=== PATIENT | female | born 1995 | race Caucasian/White ===

== ENCOUNTER 2018-06-17 16:41 | Outpatient (CLI) | payer MEDICAID, SELFPAY ==
--- NOTE | 2018-06-17 16:46 | DI.RAD_ITS ---
SYMPTOM/DIAGNOSIS: COUGH, R05, LOW BACK PAIN, M54.5 PA AND LATERAL CHEST: The heart is normal in size. The lungs are clear. The mediastinal structures and pleura appear intact. CONCLUSION: Normal chest. LUMBO-SACRAL SPINE: The bones of the spine appear intact. The intervertebral disc spaces are well maintained. No abnormality of vertebral alignment is seen. There is no evidence of spondylolysis or spondylolisthesis. CONCLUSION: Normal lumbo-sacral spine.
--- NOTE | 2018-06-17 16:58 | DI.VRAD_ITS ---
EXAM: XR Chest, 2 Views EXAM DATE/TIME: 06/17/2018 4:05 PM CLINICAL HISTORY: 23 years old, female; Signs and symptoms; Other: Cough TECHNIQUE: Imaging protocol: XR of the chest, 2 views. COMPARISON: No relevant prior studies available. FINDINGS: Lungs: Unremarkable. No consolidation. Pleural space: Unremarkable. No pleural effusion. No pneumothorax. Heart/Mediastinum: Unremarkable. No cardiomegaly. Bones/joints: Unremarkable. IMPRESSION: No acute findings. Dictated and Authenticated by: Cristi Vasquez MD. Ordering:DANYEL Lindsey MD
--- NOTE | 2018-06-17 16:58 | DI.VRAD_ITS ---
EXAM: XR Lumbar Spine, 4 or 5 Views EXAM DATE/TIME: 06/17/2018 4:05 PM CLINICAL HISTORY: 23 years old, female; Signs and symptoms; Other: Low back pain TECHNIQUE: Imaging protocol: XR of the lumbar spine, 4 or 5 views. COMPARISON: No relevant prior studies available. FINDINGS: Vertebrae: Normal. No acute fracture. Normal alignment. Soft tissues: Normal. IMPRESSION: Unremarkable radiograph. Dictated and Authenticated by: Cristi Vasquez MD. Ordering:DANYEL Lindsey MD
[2018-06-17 17:31] LABS: D-Dimer 1167 ng/mlFEU (<500)
== END 2018-06-17 17:01 ==
PROVIDERS: PCP Nurse Practitioner; Visit Provider Nurse Practitioner
DX: R05 Cough (principal); M54.5 Low back pain
CPT/HCPCS: 36415; 71046; 72110; 85379

== ENCOUNTER 2018-06-18 16:24 | Outpatient (CLI) | payer MEDICAID, SELFPAY ==
--- NOTE | 2018-06-18 14:29 | DI.CT_ITS ---
SYMPTOMS/DIAGNOSIS: COUGH, R05, ELEVATED D-DIMER, R79.89 CT ANGIOGRAPHY, CHEST: CT angiography was performed with intravenous infusion of 100 cc of Omnipaque 350. Images obtained through the upper abdomen show unremarkable appearance of visualized portions of liver, spleen and pancreas. Note is made of areas of apparent bilateral consolidation, predominantly in the lower lobes, consistent with infectious process. No pleural effusions seen. No pneumothorax seen. No evidence of thoracic aortic dissection or aneurysm. The pulmonary arteries are not ideally opacified, but there is no direct evidence of pulmonary embolic disease. CONCLUSION: Findings consistent with mild multifocal pneumonia. No evidence of pulmonary embolic disease.
[2018-06-18] MEDS: Omnipaque 350 MG/ML 100 ML BTL IJ (14:40)
== END 2018-06-18 16:44 ==
PROVIDERS: PCP Nurse Practitioner; Visit Provider Nurse Practitioner
DX: R05 Cough (principal); R79.89 Other specified abnormal findings of blood chemistry; J18.9 Pneumonia, unspecified organism
CPT/HCPCS: 71275; J3490

== ENCOUNTER 2019-01-28 18:58 | Outpatient (REF) | payer MEDICAID, SELFPAY ==
[2019-01-31 12:29] LABS: GC Result Negative (Negative)
[2019-01-31 15:28] LABS: Chlamydia Result Positive (Negative)
== END 2019-01-28 19:18 ==
LOC: NCHCN 18:58
PROVIDERS: PCP Nurse Practitioner; Visit Provider Nurse Practitioner Family
DX: Z11.3 Encounter for screening for infections with a predominantly sexual mode of transmission (principal); N89.8 Other specified noninflammatory disorders of vagina
CPT/HCPCS: 87491; 87591; 87480; 87510; 87660

== ENCOUNTER 2019-12-06 20:00 | Emergency (ER) | payer MEDICAID, SELFPAY ==
[2019-12-06 20:07] VITALS: BP 164/84; PULSE 118; RESP 16; TEMP 36.4; O2SAT 98
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
[2019-12-06 20:43] LABS: Abs Immature Grans 0.01 10^3/uL (0.0-0.06); Absolute Basophil Count 0.06 10^3/uL (0.0-0.2); Absolute Eosinophil Count 0.35 10^3/uL (0.0-0.7); Absolute Lymphocyte Count 2.77 10^3/uL (1.2-3.4); Absolute Monocyte Count 0.78 10^3/uL (0.1-0.8); Absolute Neutrophil Count 6.25 10^3/uL (1.2-6.7); Basophils % 0.6; Eosinophils % 3.4; HCT 43.3 % (36.0-46.0); Immature Grans % 0.1; Lymphocytes % 27.1; MCH 26.9 pg (27.0-33.0); MCHC 32.3 % (32.0-36.0); MCV 83.1 fL (80-95); MPV 10.8 fL (8.0-11.0); Monocytes % 7.6; Neutrophils % 61.2; Nucleated RBC 0 %; Platelet Count 342 10^3/uL (130-400); RBC 5.21 10^6/uL (3.93-5.22); RDW 16.3 % (11.7-14.6); RDW-SD 49.4 fL; WBC 10.22 10^3/uL (4.4-10.8)
[2019-12-06 20:50] VITALS: PULSE 99; RESP 16; O2SAT 98
--- NOTE | 2019-12-06 20:50 | NUR.NOTE ---
Nursing Note: Pelvic exam and specimens done by Dr Ball and chaperoned by this RN. Minimal pain and discomfort for patient. Specimens obtained and sent to lab.
[2019-12-06 20:56] LABS: Bilirubin Negative (Negative); Blood Negative (Negative); Clarity Clear (Clear); Glucose Negative (Negative); Ketones Negative (Negative); Leukocyte Esterase Small (Negative); Nitrite Negative (Negative); Specific Gravity >= 1.030 (1.005-1.025); Urobilinogen 0.2 EU/dL (Up TO 0.2); pH 5.5 (5-8)
[2019-12-06 21:07] LABS: ALT 22 U/L (14-59); AST 12 U/L (15-37); Albumin 3.9 g/dL (3.4-5.0); Alkaline Phosphatase 123 U/L (46-116); Anion Gap 9.6 mmol/L (3-11); BUN 9 mg/dL (7-18); Bilirubin, Total 0.2 mg/dL (0.2-1.0); CO2 26.4 mmol/L (21.0-32.0); CREATININE 0.82 mg/dL (0.55-1.02); Calcium 9.2 mg/dL (8.5-10.1); Chloride 106 mmol/L (98-107); Glucose 110 mg/dL (74-106); Potassium 3.4 mmol/L (3.5-5.1); Sodium 142 mmol/L (136-145); Total Protein 8.1 g/dL (6.4-8.2)
[2019-12-06 21:09] LABS: Bacteria Few HPF (Negative); C & S Indicated? No/Sq. Contamination; Casts Negative LPF (Negative); Crystals Negative HPF (Negative); Epithelial Cells Many HPF (Negative); Mucus Negative (Negative); Other Cells Moderate Renal (Negative)
[2019-12-06 21:12] LABS: HCG Quant, Pregnancy < 1 mIU/mL (1-3)
[2019-12-06 21:33] VITALS: BP 133/88; PULSE 98; RESP 16; O2SAT 98
[2019-12-06] MEDS: Ibuprofen 600 MG TAB PO (21:41)
[2019-12-06 22:34] VITALS: BP 136/87; PULSE 93; RESP 16; TEMP 37.2; O2SAT 98
[2019-12-08 15:10] LABS: GC Result Negative (Negative)
[2019-12-08 15:25] LABS: Chlamydia Result Positive (Negative)
== END 2019-12-06 22:35 | disposition home or self-care (01) ==
PROVIDERS: Emergency Provider Emergency Medicine; PCP Nurse Practitioner
DX: N76.0 Acute vaginitis (principal); B96.89 Other specified bacterial agents as the cause of diseases classified elsewhere; R10.814 Left lower quadrant abdominal tenderness; N93.9 Abnormal uterine and vaginal bleeding, unspecified
CPT/HCPCS: 36415; 80053; 81025; 87491; 87591; 99284; 81003; 81015; 84702; 85025; 87480; 87510; 87660

== ENCOUNTER 2019-12-08 15:56 | Emergency (ER) | payer MEDICAID, SELFPAY ==
--- NOTE | 2019-12-08 15:45 | DI.US_ITS ---
EXAM: US PELVIS TRANSVAGINAL CLINICAL HISTORY: left adnexal pain. TECHNIQUE: Transabdominal and transvaginal pelvic ultrasound was performed using standard protocol. COMPARISON: No exams were available for comparison FINDINGS: KIDNEYS: Kidneys are symmetric in size. No evidence of renal calculi. No evidence of hydronephrosis. No renal mass or cyst identified. UTERUS: Position: Retroverted Size: 9.6 long by 3.7 AP by 4.8 transverse cm Endometrium: 0.2 cm. Normal for patient's menstrual status. Myometrium: There does appear to be a small isoechoic mass along the posterior aspect of the uterus w hich may represent a small fibroid. Cervix: Unremarkable. OVARIES: Right: 3.3 x 1.9 x 1.8 cm Cyst or mass: Small follicular cysts. Left: 3.7 x 1.7 x 2.0 cm Cyst or mass: There is a 1.9 x 1.5 x 1.8 cm hyperechoic shadowing focus on the left ovary. Sonograph ically, this may represent a dermoid. DOPPLER: Color: Symmetric and uniform flow to both ovaries. No hyperemia. Duplex: Normal ovarian arterial waveforms visualized. CUL-DE-SAC: Free fluid: Small amount of free fluid in the cul-de-sac. Other: None. IMPRESSION: 1. Normal sonographic appearance of the kidneys. 2. Possible small isoechoic uterine fibroid. Normal endometrial stripe. 3. 1.9 cm hyperechoic shadowing focus on the left ovary which may represent a dermoid. 4. No evidence of ovarian torsion. DATA REPOSITORY:
[2019-12-08 16:03] VITALS: BP 145/90; PULSE 89; RESP 16; TEMP 36.6; O2SAT 97
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
[2019-12-08] MEDS: DOXYCYCLINE 100 MG in Normal Saline 100 ML IVPB (16:49)
--- NOTE | 2019-12-08 17:05 | DI.VRAD_ITS ---
Addendum created by Cam Moses MD on 12/08/2019 5:53:24 PM EDT: The electrical controls technician had mention the possibility of a tubo-ovarian abscess on this patient but I did not see any evidence of that. The cul-de-sac was relatively clear except for a small amount of free fluid . Impression: The findings in this study do not support the presence of a tubo-ovarian abscess Initial report created on 12/08/2019 5:05:10 PM EDT: PROCEDURE INFORMATION: Exam: US Pelvis Complete, Transabdominal and US Pelvis, Transvaginal Exam date and time: 12/08/2019 4:02 PM Age: 24 years old Clinical indication: Pelvic pain TECHNIQUE: Imaging protocol: Real-time transabdominal and transvaginal pelvic ultrasound (complete) with image documentation. Transvaginal imaging was used for better evaluation of the endometrium and adnexa. COMPARISON: SC OB US 2-3 TRIMESTER TRANSABD*P 05/18/2015 4:17 PM FINDINGS: Uterus/cervix: The uterus measures 9.6 x 3.7 x 4.8 cm with an endometrial stripe thickness of 2.2 mm. Right adnexa: The right ovary is visualized and measures 3.3 x 1.9 x 1.8 cm. The right ovary shows normal Doppler flow. Left adnexa: The left ovary measures 3.7 x 1.7 x 2.0 cm and also shows normal Doppler flow. Normal follicular cysts are in the left ovary. Intraperitoneal space: A small amount of free fluid in the cul-de-sac Bladder: Normal. Other findings: The right kidney is 10.5 cm in length with a cortical thickness of 1.3 cm. The left kidney is 9.7 cm in length with a cortical thickness of 1.5 cm. IMPRESSION: 1. Both ovaries are visualized and the demonstrate normal Doppler flow. No evidence of torsion. 2. The uterus is normal. 3. A small amount of free fluid in the cul-de-sac Dictated and Authenticated by: Cam Msoes MD. Ordering:COLIN Covarrubias MD
[2019-12-12 12:08] LABS: HIV-1/2 Ag & Ab Screen Negative (Negative)
== END 2019-12-08 18:05 | disposition home or self-care (01) ==
PROVIDERS: Emergency Provider Student in an Organized Health Care Education/Training Program; PCP Nurse Practitioner
DX: A56.11 Chlamydial female pelvic inflammatory disease (principal); N83.02 Follicular cyst of left ovary
CPT/HCPCS: 36415; 87389; 96365; 99284; 76830; 76856; 99281

== ENCOUNTER 2021-06-11 02:54 | Outpatient (CLI) | payer MEDICAID, SELFPAY | END 2021-06-11 02:55 | disposition home or self-care (01) | LOC: LBO 02:54 | PROVIDERS: PCP Nurse Practitioner; Visit Provider Advanced Practice Midwife ==

== ENCOUNTER 2021-07-01 18:46 | Outpatient (REF) | payer MEDICAID, SELFPAY ==
[2021-07-03 13:05] LABS: Chlamydia Result Negative (Negative); GC Result Negative (Negative)
== END 2021-07-01 18:47 | disposition home or self-care (01) ==
LOC: LBN 18:46
PROVIDERS: PCP Nurse Practitioner; Visit Provider Advanced Practice Midwife
DX: O26.852 Spotting complicating pregnancy, second trimester
CPT/HCPCS: 87491; 87591; 87086; 87480; 87510; 87660

== ENCOUNTER 2021-07-11 02:59 | Outpatient (CLI) | payer MEDICAID, SELFPAY | END 2021-07-11 03:00 | disposition home or self-care (01) | LOC: LBO 02:59 | PROVIDERS: PCP Nurse Practitioner; Visit Provider Advanced Practice Midwife ==

== ENCOUNTER 2021-07-11 15:08 | Outpatient (REF) | payer MEDICAID, SELFPAY ==
--- NOTE | 2021-07-11 14:00 | PAPFT_PTH ---
PATIENT: Andree Payne LOC: [facility] U#:[id number] AGE/SX: 26/F ROOM: RE07/11/[address]: Jana Tran CNM : 1995 BED: DIS: 07/11/2021 SPEC #: [id number] RECD: 07/11/21 17:41 STATUS: AGUEDA REKaylyn #: [id number] PAULO: 07/11/21 14:[address]: Jana Tran DEPT: [facility] Cytology RECD BY: Melody Martin ENTERED: 07/11/21 17:41 SP TYPE: PAPFT OTHR DR: Rosalia Macdonald Tissues: 1 - CX/ENDOCX FOR PAP SMEARS Procedures: PAP THIN PREP/UVM Screening Comments: [id number] (CHLAMYDIA/GC)
[2021-07-11 17:38] LABS: *AMPHETAMINES SCREEN URINE Negative (Negative); *BARBITURATES SCREEN URINE Negative (Negative); *BENZODIAZEPINES SCREEN URINE Negative (Negative); Cannabinoids THC Negative (Negative); Cocaine Screen,Urine Negative (Negative); METHADONE URINE SCREEN Negative (Negative); OPIATES URINE SCREEN Negative (Negative)
[2021-07-11 17:58] LABS: Tricyclic Antidepressants Negative (Negative)
[2021-07-12 15:04] LABS: Chlamydia Result Negative (Negative); GC Result Negative (Negative)
[2021-07-18 10:00] LABS: Buprenorphine Negative ng/mL (Cutoff: 5.0); Norbuprenorphine Negative ng/mL (Cutoff: 2.5)
== END 2021-07-11 15:09 | disposition home or self-care (01) ==
LOC: LBN 15:08
PROVIDERS: PCP Nurse Practitioner; Visit Provider Advanced Practice Midwife
DX: Z34.92 Encounter for supervision of normal pregnancy, unspecified, second trimester (principal); Z3A.16 16 weeks gestation of pregnancy; Z12.4 Encounter for screening for malignant neoplasm of cervix
CPT/HCPCS: 80307; 87491; 87591; 88142; 87086

== ENCOUNTER 2021-07-18 03:51 | Outpatient (CLI) | payer MEDICAID, SELFPAY | END 2021-07-18 03:52 | disposition home or self-care (01) | LOC: LBO 03:51 | PROVIDERS: PCP Nurse Practitioner; Visit Provider Advanced Practice Midwife ==

== ENCOUNTER → 2021-07-24 00:04 | Outpatient (CLI) | payer MEDICAID, SELFPAY ==
--- NOTE | 2021-07-24 07:00 | DI.US_ITS ---
Exam(s) US OB 2-3 TRIMESTER EXAM: US OB 2-3 TRIMESTER CLINICAL HISTORY: anatomy,z34.92. TECHNIQUE: Transabdominal obstetrical ultrasound performed. COMPARISON: FINDINGS: None transabdominal obstetrical ultrasound performed. FINDINGS: Number of fetuses: One. position: Variable Placental grade: 1 Placental location: Posterior. No evidence of previa. BIOMETRIC DATA: BPD: 40 mm, 18+ 1 weeks HC: 151 mm, 18+ 1 weeks AC: 121 mm, 17+ 5 weeks FL: 26 mm, 17+ 6 weeks Cisterna Magna: 3.4 mm Cerebellum: 1.7 cm EFW: 273 grms 36% Composite Age: 18+ 0 weeks EDC by US: 25 December 2021 Heart Rate: 150BPM Amniotic fluid: Amount of fluid is visually within normal limits. ANATOMICAL SURVEY: Four-chambered heart: Unremarkable. LVOT: Unremarkable. RVOT: Unremarkable. Left-sided stomach: Unremarkable. urinary bladder: Unremarkable. Bilateral kidneys: Unremarkable. Three-vessel cord: Unremarkable. Cord insertion: Unremarkable. Umbilical artery velocity: Unremarkable. Posterior fossa:Unremarkable. ventricles: Unremarkable. nose: Unremarkable. lips: Unremarkable. palate: Unremarkable. spine: Unremarkable. Two arms and two legs: Unremarkable. IMPRESSION: 1. Single live intrauterine gestation 18+ 0 weeks. 2. Normal anatomic survey. DATA REPOSITORY:
== END ==
PROVIDERS: PCP Nurse Practitioner; Visit Provider Advanced Practice Midwife
DX: Z34.92 Encounter for supervision of normal pregnancy, unspecified, second trimester (principal); Z3A.18 18 weeks gestation of pregnancy
CPT/HCPCS: 76805

== ENCOUNTER 2021-09-27 01:33 | Outpatient (CLI) | payer MEDICAID, SELFPAY | END 2021-09-27 01:34 | disposition home or self-care (01) | LOC: LBO 01:33 | PROVIDERS: PCP Nurse Practitioner; Visit Provider Advanced Practice Midwife ==

== ENCOUNTER 2021-09-30 19:33 | Outpatient (CLI) | payer MEDICAID, SELFPAY | END 2021-09-30 19:34 | disposition home or self-care (01) | LOC: LBO 19:34 | PROVIDERS: PCP Nurse Practitioner; Visit Provider Advanced Practice Midwife ==

== ENCOUNTER 2021-10-15 12:52 | Outpatient (CLI) | payer MEDICAID, SELFPAY ==
[2021-10-15 13:51] VITALS: BP 143/91; PULSE 102
[2021-10-15 13:57] LABS: HCT 32.8 % (36.0-46.0); HGB 10.6 g/dL (11.2-15.7); MCHC 32.3 % (32.0-36.0); MCV 80 fL (80-95); MPV 10.8 fL (8.0-11.0); Platelet Count 285 10^3/uL (130-400); RBC 4.08 10^6/uL (3.93-5.22); RDW 16.1 % (11.7-14.6); RDW-SD 47.3 fL; WBC 12.02 10^3/uL (4.4-10.8)
[2021-10-15 14:05] VITALS: BP 143/91; PULSE 102; TEMP 36.8
[2021-10-15 14:05] LABS: Hemoglobin A1C 5.6 % (<5.7)
[2021-10-15 14:12] LABS: ALT 19 U/L (14-59); AST 19 U/L (15-37); Albumin 2.7 g/dL (3.4-5.0); Alkaline Phosphatase 114 U/L (46-116); Anion Gap 8.3 mmol/L (3-11); BUN 6 mg/dL (7-18); Bilirubin, Total 0.3 mg/dL (0.2-1.0); CO2 22.7 mmol/L (21.0-32.0); CREATININE 0.7 mg/dL (0.55-1.02); Calcium 8.7 mg/dL (8.5-10.1); Chloride 103 mmol/L (98-107); Glucose 101 mg/dL (74-106); Potassium 3.3 mmol/L (3.5-5.1); Sodium 134 mmol/L (136-145); Total Protein 6.7 g/dL (6.4-8.2)
[2021-10-15 14:22] LABS: TSH (W/Ref FT4) 0.99 uIU/mL (0.36-3.74)
[2021-10-15 14:25] LABS: Bilirubin Negative (Negative); Blood Negative (Negative); Clarity Sl Cloudy (Clear); Glucose Negative (Negative); Ketones Negative (Negative); Leukocyte Esterase Trace (Negative); Nitrite Negative (Negative); Specific Gravity 1.025 (1.005-1.025)
[2021-10-15 14:27] VITALS: BP 126/69; PULSE 87
[2021-10-15 14:36] VITALS: BP 126/69
[2021-10-15 14:40] LABS: Bacteria Moderate HPF (Negative); C & S Indicated? No/Sq. Contamination; Casts Negative LPF (Negative); Crystals Negative HPF (Negative); Epithelial Cells Many HPF (Negative); Mucus Negative (Negative); Other Cells Negative (Negative); RBC Negative HPF (0-2)
--- NOTE | 2021-10-15 14:41 | W.OBNST ---
Date of service: 10/15/21 Time of Service: 14:41 NST Evaluation Reason for NST Reasons for Nonstress Test: DECREASED MOVEMENT Gestational Age Gestational Age in Weeks and Days: 29 Weeks and 6Days Test and Monitor Explained Test/Monitor Explained: Test Explained, Monitor Explained and Patient Verbalized Understanding Vital Signs Blood Pressure: 126/69 Pulse: 102 Temperature: 98.2 F Urine Results Urine Protein: Negative Urine Ketones: Negative Urine Glucose: Negative Urine Blood: Negative NST Information Date on Monitor: 10/15/21 Time on Monitor: 13:40 Date off Monitor: 10/15/21 Time off Monitor: 14:28 Total Time on Monitor: 48 NST Interventions: PO Hydration Contraction Frequency: none NST Evaluation Patient States Movement: Present FHR Baseline: 125 Variability: Moderate 6-25 bpm Accelerations: 10x10 Decelerations: None NST Results: Reactive Note NST Note Note: labs drawn today with baseline CMP and upr/cr Made appt for 30 wk check in [facility] for Is aware she will need to schedule 1 hr glucola screen NST Reviewed and Verified by: Jana Tran
[2021-10-15 14:43] VITALS: BP 126/69; PULSE 102; TEMP 36.8
[2021-10-15 14:43] LABS: COMMENT (LAB VIEW ONLY) 233.15 mg/dL; Prot/Crea Ur Ratio 0.14
[2021-10-15 14:46] LABS: *AMPHETAMINES SCREEN URINE Negative (Negative); *BARBITURATES SCREEN URINE Negative (Negative); *BENZODIAZEPINES SCREEN URINE Negative (Negative); Cannabinoids THC Negative (Negative); Cocaine Screen,Urine Negative (Negative); METHADONE URINE SCREEN Negative (Negative); OPIATES URINE SCREEN Negative (Negative)
[2021-10-15 14:47] LABS: Tricyclic Antidepressants Negative (Negative)
[2021-10-16 09:41] LABS: Hepatitis B Surface Ag Negative (Negative)
[2021-10-16 10:30] LABS: Hepatitis C Ab w Rflx HCV PCR Negative (Negative)
[2021-10-16 10:36] LABS: Varicella IgG Antibody Negative (See Note)
[2021-10-16 10:42] LABS: HIV-1/2 Ag & Ab Screen Negative (Negative)
[2021-10-16 10:43] LABS: Rubella IgG Ab (UVM) Positive (See Note)
[2021-10-17 16:33] LABS: Syphilis IgG w/Reflex Nonreactive (Nonreactive)
[2021-10-22 14:20] LABS: Buprenorphine Negative ng/mL (Cutoff: 5.0)
== END 2021-10-15 14:28 | disposition home or self-care (01) ==
LOC: LBN 13:00 → BCD 13:26 → OBS 13:35
PROVIDERS: PCP Nurse Practitioner; Visit Provider Advanced Practice Midwife
DX: O36.8130 Decreased fetal movements, third trimester, not applicable or unspecified (principal); O26.893 Other specified pregnancy related conditions, third trimester; Z3A.29 29 weeks gestation of pregnancy
CPT/HCPCS: 59025; 80053; 80307; 85027; 86706; 86787; 86803; 87340; 87389; 81003; 81015; 82565; 83036; 84156; 84443; 86762; 86780

== ENCOUNTER 2021-10-18 01:36 | Outpatient (CLI) | payer MEDICAID, SELFPAY ==
[2021-10-18 11:16] LABS: Glucose,1 Hr (Glucola) 137 mg/dL (80-140)
== END 2021-10-18 01:37 | disposition home or self-care (01) ==
LOC: LBO 01:37
PROVIDERS: PCP Nurse Practitioner; Visit Provider Advanced Practice Midwife
DX: Z34.91 Encounter for supervision of normal pregnancy, unspecified, first trimester; Z11.3 Encounter for screening for infections with a predominantly sexual mode of transmission
CPT/HCPCS: 36415; 82950; 86850; 86900; 86901

== ENCOUNTER → 2021-11-05 01:27 | Outpatient (CLI) | payer MEDICAID, SELFPAY ==
--- NOTE | 2021-11-05 07:30 | DI.US_ITS ---
Exam(s) US OB DANIEL WEIGHT EXAM: US OB DANIEL WEIGHT CLINICAL HISTORY: growth and DANIEL due to COVID in ,U07.1,o98.511 TECHNIQUE: Ultrasound performed using standard protocol. COMPARISON: US US OB 2-3 TRIMESTER from 07/24/2021 FINDINGS: Ob ultrasound was performed utilizing 3rd trimester protocol. biometry is consistent with a ge stational age of 32 weeks 6 days and EDC of December 25. The estimated weight is 1929 grams w hich is at the 23rd percentile for predicted gestational age. Placenta is posterior with no evidence of placenta previa. There is visually a normal quantity of am niotic fluid and the DANIEL is 16. heart rate is 142 BPM. Fetus is in cephalic presentation. IMPRESSION: DATA REPOSITORY:
== END ==
PROVIDERS: PCP Nurse Practitioner Family; Visit Provider Advanced Practice Midwife
DX: Z34.93 Encounter for supervision of normal pregnancy, unspecified, third trimester (principal); Z86.16 Personal history of COVID-19
CPT/HCPCS: 76816

== ENCOUNTER 2021-11-28 10:03 | Outpatient (CLI) | payer MEDICAID, SELFPAY ==
[2021-11-28 10:20] VITALS: BP 149/94; PULSE 99
[2021-11-28 10:28] LABS: HCT 33.2 % (36.0-46.0); HGB 10.6 g/dL (11.2-15.7); MCH 24.7 pg (27.0-33.0); MCHC 31.9 % (32.0-36.0); MCV 77 fL (80-95); MPV 10.6 fL (8.0-11.0); Platelet Count 380 10^3/uL (130-400); RDW 16.3 % (11.7-14.6); RDW-SD 46.3 fL; WBC 13.24 10^3/uL (4.4-10.8)
[2021-11-28 10:35] VITALS: BP 150/93; PULSE 103
[2021-11-28 10:48] LABS: ALT 15 U/L (14-59); AST 17 U/L (15-37); Albumin 2.5 g/dL (3.4-5.0); Alkaline Phosphatase 166 U/L (46-116); Anion Gap 9.4 mmol/L (3-11); BUN 5 mg/dL (7-18); Bilirubin, Total 0.2 mg/dL (0.2-1.0); CO2 22.6 mmol/L (21.0-32.0); CREATININE 0.7 mg/dL (0.55-1.02); Chloride 103 mmol/L (98-107); Estimated GFR 123.01 (mL/min/1.73m2); Glucose 94 mg/dL (74-106); LDH 129 U/L (81-234); Potassium 3.7 mmol/L (3.5-5.1); Sodium 135 mmol/L (136-145); Total Protein 6.9 g/dL (6.4-8.2); Uric Acid 5.2 mg/dL (2.6-6.0)
[2021-11-28 10:50] VITALS: BP 143/94; PULSE 107
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
[2021-11-28 12:10] LABS: COMMENT (LAB VIEW ONLY) 215.03 mg/dL; PROTEIN 27.2 mg/dL; Prot/Crea Ur Ratio 0.12
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
[2021-11-28 12:17] VITALS: BP 137/95; PULSE 125; TEMP 36.8
--- NOTE | 2021-11-28 12:26 | W.OBNST ---
Date of service: 11/28/21 Time of Service: 12:26 NST Evaluation Reason for NST Reasons for Nonstress Test: GESTATIONAL HYPERTENSION and OTHER, SEE COMMENT Gestational Age Gestational Age in Weeks and Days: 36 Weeks and 1Days Test and Monitor Explained Test/Monitor Explained: Test Explained, Monitor Explained, Patient Verbalized Understanding and Other Vital Signs Blood Pressure: 137/95 Pulse: 125 Temperature: 98.2 F Urine Results Urine Protein: Negative Urine Ketones: Negative Urine Glucose: Negative Urine Blood: Negative NST Information Date on Monitor: 11/28/21 Time on Monitor: 09:52 Date off Monitor: 11/28/21 Time off Monitor: 10:55 Total Time on Monitor: 63 NST Interventions: PO Hydration and Meal Given Contraction Frequency: 0 NST Evaluation Patient States Movement: Present FHR Baseline: 150 Variability: Moderate 6-25 bpm Accelerations: 15x15 Decelerations: None NST Results: Reactive Note NST Note Note: Serial BP's elevated but not in severe ranges. Pre-eclampsia labs are negative. NST is reactive and reassuring. Consult with Dr. Thomas done, patient discharged on expectant management to return 12/02/21 for NST and further assessment. Health And Wellness Coordinator reviewed pre-eclampsia warning signs and third trimester warning signs to call for. NST Reviewed and Verified by: Jada Logan
[2021-11-28 12:29] VITALS: BP 137/95; PULSE 125; TEMP 36.8
== END 2021-11-28 12:22 | disposition home or self-care (01) ==
LOC: BCD 10:06 → OBS 10:12
PROVIDERS: PCP Nurse Practitioner Family; Visit Provider Advanced Practice Midwife
DX: O13.3 Gestational [pregnancy-induced] hypertension without significant proteinuria, third trimester (principal); Z3A.36 36 weeks gestation of pregnancy
CPT/HCPCS: 59025; 36415; 80053; 85027; 82565; 83615; 84156; 84550; 87081

== ENCOUNTER 2021-11-29 11:30 | Observation (INO) | payer MEDICAID, SELFPAY ==
[2021-11-29 11:40] VITALS: BP 149/88; PULSE 109; TEMP 37
[2021-11-29 12:04] VITALS: BP 149/88; PULSE 109
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
--- NOTE | 2021-11-29 12:42 | PDOC.NST_ITS ---
Date of service: 11/29/21 Time of Service: 12:20 NST Evaluation Reason for NST Reasons for Nonstress Test: LABOR Gestational Age Gestational Age in Weeks and Days: 36 Weeks and 2Days Test and Monitor Explained Test/Monitor Explained: Test Explained, Monitor Explained and Patient Verbalized Understanding Vital Signs Blood Pressure: 149/88 Pulse: 109 Temperature: 98.6 F NST Information Date on Monitor: 11/29/21 Time on Monitor: 11:32 Date off Monitor: 11/29/21 Time off Monitor: 12:20 Total Time on Monitor: 48 NST Interventions: PO Hydration NST Evaluation Patient States Movement: Present FHR Baseline: 135 Variability: Moderate 6-25 bpm Accelerations: 15x15 Decelerations: None NST Results: Reactive Note NST Note Note: NST is reactive and reassuring. Patient has new onset pill rolling tremor in right hand, arm. She reports it started at 1030 this morning and that she generally does not feel well. Denies severe ESCOBEDO but has some spots in vision from time to time. She has steady gait, and negative for hyper-reflexia in arms or patella and is neg for clonus bilaterally. Dr. Archuleta consulted and will assume care based on potential new onset of neurologic symptoms. Phlebotomy Services Representative placed orders for labs and magnesium sulfate per Dr. Archuleta's request as she is working on consult by phone with MFM at [facility] for probable transfer. Marybeth declines any episodes of similar tremor's in past although chart indicates she had episode of parethesia in arms in past and was referred to neurology. See H& P by Dr. Archuleta for further evaluation and treatment plan. NST is reactive and reassuring. NST Reviewed and Verified by: Jada Logan
[2021-11-29 12:46] VITALS: BP 149/88; PULSE 109; TEMP 37
[2021-11-29 12:51] VITALS: BP 149/88; PULSE 109; TEMP 37
[2021-11-29] MEDS: Betamet Acet/Betamet Na Ph Inj. 30 MG/5 ML 12 MG IM (13:15)
[2021-11-29 13:17] LABS: HCT 31.9 % (36.0-46.0); HGB 10.5 g/dL (11.2-15.7); MCH 25.3 pg (27.0-33.0); MCHC 32.9 % (32.0-36.0); MCV 77 fL (80-95); MPV 10.6 fL (8.0-11.0); Platelet Count 407 10^3/uL (130-400); RBC 4.15 10^6/uL (3.93-5.22); RDW 16.4 % (11.7-14.6); RDW-SD 45.7 fL; WBC 12.54 10^3/uL (4.4-10.8)
[2021-11-29 13:18] LABS: Platelet Count 388 10^3/uL (130-400)
[2021-11-29] MEDS: MAGNESIUM SULFATE 20 GM/500 ML BAG IV (13:19)
[2021-11-29 13:49] LABS: ALT 15 U/L (14-59); AST 15 U/L (15-37); Albumin 2.5 g/dL (3.4-5.0); Alkaline Phosphatase 165 U/L (46-116); Anion Gap 10.5 mmol/L (3-11); BUN 5 mg/dL (7-18); Bilirubin, Total 0.3 mg/dL (0.2-1.0); CO2 23.5 mmol/L (21.0-32.0); CREATININE 0.7 mg/dL (0.55-1.02); Calcium 8.9 mg/dL (8.5-10.1); Chloride 102 mmol/L (98-107); Estimated GFR 123.01 (mL/min/1.73m2); Glucose 80 mg/dL (74-106); LDH 255 U/L (81-234); Potassium 3.5 mmol/L (3.5-5.1); Sodium 136 mmol/L (136-145); Total Protein 6.9 g/dL (6.4-8.2); Uric Acid 5.1 mg/dL (2.6-6.0)
[2021-11-29] MEDS: Lidocaine 1% Pres-Free 30 ML VIAL (14:03)
== END 2021-11-29 14:00 | disposition short-term general hospital (02) ==
LOC: OBS 13:08
PROVIDERS: Admitting Provider Advanced Practice Midwife; PCP Nurse Practitioner Family; Visit Provider Obstetrics & Gynecology
DX: O14.93 Unspecified pre-eclampsia, third trimester (principal); O99.353 Diseases of the nervous system complicating pregnancy, third trimester; Z3A.36 36 weeks gestation of pregnancy; G25.2 Other specified forms of tremor; O99.343 Other mental disorders complicating pregnancy, third trimester; F32.A Depression, unspecified; Z86.16 Personal history of COVID-19
CPT/HCPCS: 80053; 85027; 59025; 83615; 84550; 85049; J0702; J3475

== ENCOUNTER 2021-12-02 07:29 | Outpatient (CLI) | payer MEDICAID, SELFPAY | END 2021-12-02 07:30 | disposition home or self-care (01) | LOC: BCD 07:30 | PROVIDERS: PCP Nurse Practitioner Family; Visit Provider Advanced Practice Midwife ==

== ENCOUNTER 2021-12-11 18:27 | Emergency (ER) | payer MEDICAID, SELFPAY ==
[2021-12-11 18:32] VITALS: BP 147/92; PULSE 85; RESP 16; TEMP 36.8; O2SAT 98
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
[2021-12-11 18:55] VITALS: BP 147/67; PULSE 85; RESP 18; TEMP 36.8; O2SAT 98
[2021-12-11] MEDS: Clindamycin 300 MG CAP PO (19:02)
== END 2021-12-11 19:06 | disposition home or self-care (01) ==
PROVIDERS: Emergency Provider Physician Assistant; PCP Nurse Practitioner Family
DX: S02.5XXA Fracture of tooth (traumatic), initial encounter for closed fracture (principal); F17.210 Nicotine dependence, cigarettes, uncomplicated; X58.XXXA Exposure to other specified factors, initial encounter
CPT/HCPCS: 99283

== ENCOUNTER 2025-01-04 07:42 | Emergency (ER) | payer MEDICAID, SELFPAY ==
[2025-01-04 07:43] VITALS: BP 186/92; PULSE 106; RESP 15; TEMP 36.4; O2SAT 100
[2025-01-04 07:49] VITALS: BP 186/92; PULSE 106; RESP 15; TEMP 36.4; O2SAT 100
[2025-01-04] MEDS: Bupivacaine 0.5% Pres-Free 30 ML VIAL (08:09)
[2025-01-04] MEDS: Amoxicillin 500 MG CAP 1000 MG PO (08:14)
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
== END 2025-01-04 08:25 | disposition home or self-care (01) ==
PROVIDERS: Emergency Provider Student in an Organized Health Care Education/Training Program; PCP Nurse Practitioner Family
DX: K08.89 Other specified disorders of teeth and supporting structures (principal)
CPT/HCPCS: 99283 ×2; J0665

== ENCOUNTER 2025-03-02 13:47 | Outpatient (REF) | payer MEDICAID, SELFPAY ==
[2025-03-02 21:15] LABS: Abs Immature Grans 0.02 10^3/uL (0.0-0.06); HCT 40.6 % (36.0-46.0); HGB 13.0 g/dL (11.2-15.7); Immature Grans % 0.2 %; MCH 25.7 pg (27.0-33.0); MCHC 32.0 % (32.0-36.0); MCV 80 fL (80-95); MPV 10.5 fL (8.0-11.0); Platelet Count 372 10^3/uL (130-400); RBC 5.06 10^6/uL (3.93-5.22); RDW 15.6 % (11.7-14.6); RDW-SD 45.0 fL; WBC 8.53 10^3/uL (4.4-10.8)
[2025-03-02 21:41] LABS: Iron 23 ug/dL (50-170); Total Iron Binding Capacity 357 ug/dL (250-425); Transferrin Sat 6 % (15-50)
[2025-03-02 22:15] LABS: TSH (W/Ref FT4) 1.63 uIU/mL (0.55-4.78)
[2025-03-02 22:20] LABS: ALT 16 U/L (10-49); AST 17 U/L (<34); Albumin 4.4 g/dL (3.2-5.0); Alkaline Phosphatase 99 U/L (46-116); Anion Gap 10.9 mmol/L (3-11); BUN 14 mg/dL (9-23); Bilirubin, Total 0.3 mg/dL (0.2-1.2); CO2 25.1 mmol/L (20.0-31.0); Calcium 9.1 mg/dL (8.3-10.6); Chloride 107 mmol/L (98-107); Cholesterol 150 mg/dL (<200); Glucose 76 mg/dL (74-106); HDL Cholesterol 38 mg/dL (>or=50); Potassium 4.1 mmol/L (3.5-5.1); Sodium 143 mmol/L (136-145); Total Protein 7.2 g/dL (5.7-8.2)
[2025-03-02 22:49] LABS: Hemoglobin A1C 5.4 % (<5.7)
== END 2025-03-02 13:48 | disposition home or self-care (01) ==
LOC: NCHCN 13:47
PROVIDERS: PCP Nurse Practitioner Family; Visit Provider Nurse Practitioner Family
DX: R51.9 Headache, unspecified (principal); R73.03 Prediabetes; E66.9 Obesity, unspecified
CPT/HCPCS: 80053; 80061; 83036; 83540; 83550; 84443; 85025